=== PATIENT | female | born 1945 | race Two or more races ===

== ENCOUNTER 2022-06-16 07:56 | Outpatient (CLI) | payer OTHER | END 2022-06-16 08:00 | disposition home or self-care (01) | LOC: NUCLEAR 07:56 | PROVIDERS: ATTEND Internal Medicine | DX: I10 Essential (primary) hypertension (principal); J44.9 Chronic obstructive pulmonary disease, unspecified; E11.9 Type 2 diabetes mellitus without complications; J45.909 Unspecified asthma, uncomplicated; G62.9 Polyneuropathy, unspecified; J84.9 Interstitial pulmonary disease, unspecified; G47.33 Obstructive sleep apnea (adult) (pediatric) ==